=== PATIENT | female | born 1945 | race Caucasian/White ===

== ENCOUNTER 2016-04-23 11:28 | Emergency (ER) | payer MEDICARE, BC ==
[~2016-04-23 11:28] MED LIST: ANAS1TAB OR; ATOR10 PO; AUGM500T7 PO; CALC600T10 PO; GLUCTAB PO; RAMI10CA35 PO; TRIA50 PO; VICT18IN
[2016-04-23 11:37] VITALS: BP 86/64; PULSE 103; RESP 20; TEMP 98.4; O2SAT 89
[2016-04-23] MEDS ORDERED: FURO20TA PO (11:43)
[2016-04-23] MEDS ORDERED: PRAV10TA PO (11:43)
[2016-04-23] MEDS ORDERED: SPIR25TA PO (11:43)
[2016-04-23] MEDS ORDERED: RAMI5CAP PO (11:43)
[2016-04-23] MEDS ORDERED: METF1000 PO (11:43)
[2016-04-23] MEDS ORDERED: SODIUM CHLORIDE 0.9% FLUSH 5 ML FLUSH IVF PRN (11:45)
[2016-04-23 11:59] VITALS: O2SAT 90
[2016-04-23 12:05] LABS: BASOPHIL % 0.7 % (0.0-2.0); LYMPH % 16.8 % (9.0-44.0); LYMPHOCYTE # 1.1 TH/MM3 (1.0-4.8); MEAN CELL VOLUME 68.7 FL (80.0-100.0); MEAN CORPUSCULAR HEMOGLOBIN 21.1 PG (27.0-34.0); MEAN CORPUSCULAR HGB CONC 30.7 % (32.0-36.0); MONO % 9.6 % (0.0-8.0); NEUT % 72.9 % (16.0-70.0); PLATELET COUNT 257 TH/MM3 (150-450); RED BLOOD COUNT 5.67 MIL/MM3 (4.00-5.30); RED CELL DISTRIBUTION WIDTH 17.5 % (11.6-17.2); WHITE BLOOD COUNT 6.8 TH/MM3 (4.0-11.0)
[2016-04-23 12:07] LABS: HEMO FLAGS AUTO DIFF
--- NOTE | 2016-04-23 12:08 | PD ---
HPI Chief Complaint: Cold / Flu Symptoms Time Seen by Provider: 11:42 Travel History International Travel<30 days: No Contact w/Intl Traveler<30days: No Traveled to known affect area: No History of Present Illness HPI Is a 70 year-old woman who presents to the emergency department complaining of some cough and fatigue and ongoing for the past week or so. Cough is productive of small amount of sputum. Fatigue is been fairly prominent. She denies any fevers or chills. No chest pain. She recently had trouble with to much volume. She is a history of an enlarged heart and is on both spironolactone and Lasix daily. He had a metallic zone with good effect and she just recently changed to taking it every other day instead. She had some lower extremity swelling without improvement during that time as well. She is a history of active tobacco use although she hasn't smoked for the past week or so since she's been feeling sick. She saw her primary doctor today and was sent to the emergency department to evaluate for pneumonia. History Past Medical History Narrative Medical COPD Diabetes Hypertension History of breast cancer Enlarged heart/CHF Menopausal: Yes Social History Alcohol Use: Yes (SELDOM) Tobacco Use: Yes ("A COUPLE OF PPD") Allergies-Medications (Allergen,Severity, Reaction): Coded Allergies: No Known Allergies (Verified , 04/23/16) Reported Meds & Prescriptions Reported Meds & Active Scripts Active Reported Spironolactone 25 Mg Tab Unknown Dose PO DAILY Furosemide 20 Mg Tab Unknown Dose PO DAILY Pravastatin 10 Mg Tab Unknown Dose PO DAILY Ramipril 5 Mg Cap 5 Mg PO DAILY Metformin (Metformin HCl) 1,000 Mg Tab 1,000 Mg PO BIDPC With meals Review of Systems Except as stated in HPI: all other systems reviewed are Neg Physical Exam Narrative GENERAL: Generally well-appearing 70 year-old woman, no acute distress. SKIN: Warm and dry. HEAD: Atraumatic. Normocephalic. EYES: Pupils equal and round. No scleral icterus. No injection or drainage. ENT: No nasal bleeding or discharge. Mucous membranes pink and moist. NECK: Trachea midline. No JVD. CARDIOVASCULAR: Heart rate a little bit rapid, but regular. She has a thick split S2. No appreciable murmurs. RESPIRATORY: No accessory muscle use. Clear to auscultation. Breath sounds equal bilaterally. GASTROINTESTINAL: Abdomen soft, non-tender, nondistended. Hepatic and splenic margins not palpable. MUSCULOSKELETAL: No obvious deformities. No edema. NEUROLOGICAL: Awake and alert. No obvious cranial nerve deficits. Motor grossly within normal limits. Normal speech. Data Data Last Documented VS Vital Signs Date Time Temp Pulse Resp B/P Pulse Ox O2 Delivery O2 Flow Rate FiO2 04/23/16 13:32 76 20 88/64 96 04/23/16 12:22 98.4 Nasal Cannula 2 Orders Complete Blood Count With Diff (04/23/16 11:43) Comprehensive Metabolic Panel (04/23/16 11:43) B-Type Natriuretic Peptide (04/23/16 11:43) Magnesium (Mg) (04/23/16 11:43) Troponin I (04/23/16 11:43) Urinalysis - C+S If Indicated (04/23/16 11:43) Influenzae A/B Antigen (04/23/16 11:43) Blood Culture (04/23/16 11:43) Iv Access Insert/Monitor (04/23/16 11:43) Electrocardiogram (04/23/16 11:43) Ecg Monitoring (04/23/16 11:43) Oximetry (04/23/16 11:43) Oxygen Administration (04/23/16 11:43) Chest, Pa & Lat (04/23/16 11:43) Sodium Chloride 0.9% Flush (Ns Flush) (04/23/16 11:45) Labs Laboratory Tests Test 04/23/16 04/23/16 11:40 11:45 White Blood Count 6.8 TH/MM3 Red Blood Count 5.67 MIL/MM3 Hemoglobin 12.0 GM/DL Hematocrit 39.0 % Mean Corpuscular Volume 68.7 FL Mean Corpuscular Hemoglobin 21.1 PG Mean Corpuscular Hemoglobin 30.7 % Concent Red Cell Distribution Width 17.5 % Platelet Count 257 TH/MM3 Mean Platelet Volume 8.3 FL Neutrophils (%) (Auto) 72.9 % Lymphocytes (%) (Auto) 16.8 % Monocytes (%) (Auto) 9.6 % Eosinophils (%) (Auto) 0.0 % Basophils (%) (Auto) 0.7 % Neutrophils # (Auto) 5.0 TH/MM3 Lymphocytes # (Auto) 1.1 TH/MM3 Monocytes # (Auto) 0.7 TH/MM3 Eosinophils # (Auto) 0.0 TH/MM3 Basophils # (Auto) 0.0 TH/MM3 CBC Comment AUTO DIFF Differential Comment AUTO DIFF CONFIRMED Platelet Estimate NORMAL Platelet Morphology Comment NORMAL Sodium Level 124 MEQ/L Potassium Level 3.9 MEQ/L Chloride Level 83 MEQ/L Carbon Dioxide Level 30.4 MEQ/L Anion Gap 11 MEQ/L Blood Urea Nitrogen 22 MG/DL Creatinine 1.20 MG/DL Estimat Glomerular Filtration 45 ML/MIN Rate Random Glucose 124 MG/DL Calcium Level 8.7 MG/DL Magnesium Level 1.5 MG/DL Total Bilirubin 0.8 MG/DL Aspartate Amino Transf 25 U/L (AST/SGOT) Alanine Aminotransferase 16 U/L (ALT/SGPT) Alkaline Phosphatase 91 U/L Troponin I 0.02 NG/ML B-Type Natriuretic Peptide 1413 PG/ML Total Protein 7.2 GM/DL Albumin 3.6 GM/DL Urine Collection Type CLEAN CATCH Urine Color YELLOW Urine Turbidity CLEAR Urine pH 6.0 Urine Specific [place] 1.009 Urine Protein NEG mg/dL Urine Glucose (UA) NEG mg/dL Urine Ketones NEG mg/dL Urine Occult Blood NEG Urine Nitrite NEG Urine Bilirubin NEG Urine Leukocyte Esterase NEG Urine Squamous Epithelial 0-5 /hpf Cells Microscopic Urinalysis Comment CULT NOT INDICATED MDM Medical Decision Making Medical Screen Exam Complete: Yes Emergency Medical Condition: Yes Interpretation(s) My review of EKG: Sinus rhythm at a rate of 90. EKG is very abnormal with widespread ST changes, inferior T-wave inversions, lateral T wave inversions, right axis deviation, incomplete right bundle branch block, likely all from her cardiomyopathy. He only old when I have for comparison is from September 2012. All the findings are much more pronounced on today's EKG especially lateral ST changes and T-wave inversions. LABS: CBC remarkable for mild anemia. CMP remarkable for sodium 124, BUN/creatinine 22/1.2 Troponin 0.02 BNP 1413 UA Chest x-ray: Cardiomegaly. Clear lungs. Differential Diagnosis URI, pneumonia, pulmonary edema, ACS, renal failure, other Narrative Course Medical decision making INITIAL: 62-year-old woman with fairly pronounced sounds like cardiomyopathy and CHF who presents with cough and fatigue. She is overall well-appearing. Oxygen saturations were in the low 90s high 80s. EKG is very abnormal with widespread ST changes, inferior T-wave inversions, lateral T wave inversions, right axis deviation, incomplete right bundle branch block, likely all from her cardiomyopathy. He only old when I have for comparison is from September 2012. All the findings are much more pronounced on today's EKG especially lateral ST changes and T-wave inversions. We'll check labs, x-ray, reassess. FINAL: Patient presently well-appearing. Sodium is pretty low. I spoke with her sourcing specialist, Dr. Mata. It labs yesterday were is 121. She runs between 28/02/27. He states he has severe right sided heart failure may be able to manage with diuretics. He will follow up with her. She desires to be discharged. We'll give her medication for the cough. Diagnosis Primary Impression: Bronchitis Additional Instructions: Continue current medications including taking metalozone every other day. Follow-up with Dr. Cortés as planned. Take azithromycin as prescribed. Med/Other Pt SpecificInfo: Prescription(s) given Scripts Azithromycin (Zithromax Z-Jaime)250 Mg [id number] Mg PO DIRECTED #1 DSPK 500 MG (2 tabs) day 1, then 1 tab days 2-5. Prov:Kevin Fonseca MD 04/23/16 Disposition: 01 DISCHARGE HOME Condition: Stable Kevin Fonseca MD Apr 23, 2016 12:07
[2016-04-23 12:22] VITALS: BP 83/68; PULSE 92; RESP 20; TEMP 98.4; O2SAT 95
[2016-04-23 12:34] LABS: ALKALINE PHOSPHATASE 91 U/L (45-117); ALT (GPT) 16 U/L (10-53); ANION GAP 11 MEQ/L (5-15); AST (GOT) 25 U/L (15-37); BICARBONATE 30.4 MEQ/L (21.0-32.0); BLOOD UREA NITROGEN 22 MG/DL (7-18); CHLORIDE 83 MEQ/L (98-107); GLOMERULAR FILTRATION RATE 45 ML/MIN (>89); MAGNESIUM 1.5 MG/DL (1.5-2.5); PLATELET ESTIMATE SMEAR NORMAL (NORMAL); PLATELET MORPHOLOGY NORMAL (NORMAL); POTASSIUM 3.9 MEQ/L (3.5-5.1); SCAN/DIFF AUTO DIFF CONFIRMED; TOTAL BILIRUBIN ADULT 0.8 MG/DL (0.2-1.0)
[2016-04-23 12:35] LABS: SODIUM (NA) 124 MEQ/L (136-145)
--- NOTE | 2016-04-23 12:40 | RADHPO ---
EXAM DATE/TIME: 04/23/2016 12:14 [facility] COMPARISON: No previous studies available for comparison. INDICATIONS : Cough and short of breath. MEDICAL HISTORY : None. SURGICAL HISTORY : None. ENCOUNTER: Initial ACUITY: 3 days PAIN SCORE: 2/10 LOCATION: Bilateral chest FINDINGS: PA and lateral views of the chest demonstrate the lungs to be symmetrically aerated without evidence of mass, infiltrate or effusion. Mild cardiomegaly. Pulmonary vasculature is within the normal range. Osseous structures are intact. CONCLUSION: Cardiomegaly. Clear lungs. Jim Griffiths Jr., MD on April 23, 2016 at 12:38 Board Certified Radiologist. This report was verified electronically.
[2016-04-23 12:59] LABS: BLOOD, URINE NEG (NEG); GLUCOSE,URINE NEG (NEG); KETONE, URINE NEG (NEG); METHOD OF COLLECTION CLEAN CATCH; NITRITE,URINE NEG (NEG)
[2016-04-23 13:00] LABS: URINE COLOR YELLOW (YELLW/STRAW)
[2016-04-23 13:03] LABS: COMMENT (UR) CULT NOT INDICATED; CULTURE IF INDICATED CULT NOT INDICATED; SQUAMOUS EPITHELIAL CELL URINE 0-5 /hpf (0-5)
[2016-04-23 13:32] VITALS: BP 88/64; PULSE 76; RESP 20; O2SAT 96
[2016-04-23] MEDS ORDERED: ZITHTAB PO (13:35)
--- NOTE | 2016-04-24 15:18 | EKG ---
Date Performed: 04/23/2016 Time Performed: 11:35:10 PTAGE: 70 years EKG: Sinus rhythm with PAC(s) Possible left atrial abnormality Right axis deviation Incomplete RBBB Biventricular hype rtrophy Extensive ST-T changes may be due to hypertrophy and/or ischemia Abnormal ECG PREVIOUS TRACING : 10/08/2012 14.18 Compared to previous tracing, the patient does have more ma rked Q-wave inversion and ST depression which may be secondary to LVH. Clinical correlation requested to evaluate for ischemia. DOCTOR: Jemima Rodríguez Interpretating Date/Time 04/24/2016 15:17:16
== END 2016-04-23 13:56 | disposition home or self-care (01) ==
LOC: PHED 11:28
DX: J40 Bronchitis, not specified as acute or chronic (principal); J44.9 Chronic obstructive pulmonary disease, unspecified; F17.210 Nicotine dependence, cigarettes, uncomplicated; E11.9 Type 2 diabetes mellitus without complications; I10 Essential (primary) hypertension; Z79.4 Long term (current) use of insulin; R94.31 Abnormal electrocardiogram [ECG] [EKG]
CPT/HCPCS: 71020; 80053; 81001; 83735; 83880; 84484; 85025; 87040; 87804; 93005

== ENCOUNTER 2016-06-05 13:11 | Inpatient (IN) | payer MEDICARE, BC ==
[2016-06-05] VITALS (16 sets, daily range): BP systolic 75–107; BP diastolic 52–68; PULSE 80–106; RESP 16–24; TEMP 97.9–98.2; O2SAT 87–98
[~2016-06-05] VITALS: Ht 152.4 cm; Wt 60.2 kg
[~2016-06-05 13:11] MED LIST changes: -ANAS1TAB OR; -ATOR10 PO; -AUGM500T7 PO; -CALC600T10 PO; +FURO20TA PO; -GLUCTAB PO; +METF1000 PO; +PRAV10TA PO; -RAMI10CA35 PO; +RAMI5CAP PO; +SPIR25TA PO; -TRIA50 PO; -VICT18IN; +ZITHTAB PO
[2016-06-05] MEDS ORDERED: SODIUM CHLORIDE 0.9% FLUSH 10 ML FLUSH IVF PRN (13:45)
[2016-06-05] MEDS ORDERED: SODIUM CHLOR 0.9% 250 ML INJ 250 ML IV ONE (13:45)
[2016-06-05 14:03] LABS: AUTOMATED NEUTROPHIL # 6.3 TH/MM3 (1.8-7.7); BASOPHIL # 0.2 TH/MM3 (0-0.2); EOSINOPHIL % 0.4 % (0.0-4.0); HEMATOCRIT 35.4 % (35.0-46.0); LYMPH % 12.8 % (9.0-44.0); MEAN CELL VOLUME 66.8 FL (80.0-100.0); MEAN CORPUSCULAR HEMOGLOBIN 20.6 PG (27.0-34.0); MEAN CORPUSCULAR HGB CONC 30.8 % (32.0-36.0); MONO % 9.1 % (0.0-8.0); NEUT % 75.7 % (16.0-70.0); PLATELET COUNT 307 TH/MM3 (150-450); RED BLOOD COUNT 5.29 MIL/MM3 (4.00-5.30); RED CELL DISTRIBUTION WIDTH 20.6 % (11.6-17.2); WHITE BLOOD COUNT 8.2 TH/MM3 (4.0-11.0)
[2016-06-05 14:06] LABS: HEMO FLAGS AUTO DIFF
[2016-06-05 14:09] LABS: CHLORIDE 88 MEQ/L (98-107); POTASSIUM 3.8 MEQ/L (3.5-5.1); SODIUM (NA) 126 MEQ/L (136-145)
[2016-06-05 14:13] LABS: ANION GAP 12 MEQ/L (5-15); BICARBONATE 26.4 MEQ/L (21.0-32.0); BLOOD UREA NITROGEN 21 MG/DL (7-18)
[2016-06-05 14:15] LABS: APTT (PATIENT) 25.7 SEC (24.3-30.1); PROTHROMBIN TIME - PATIENT 10.6 SEC (9.8-11.6)
[2016-06-05 14:16] LABS: ALT (GPT) 20 U/L (10-53); AST (GOT) 32 U/L (15-37); GLOMERULAR FILTRATION RATE 55 ML/MIN (>89)
[2016-06-05 14:18] LABS: TOTAL BILIRUBIN ADULT 0.6 MG/DL (0.2-1.0)
[2016-06-05 14:19] LABS: ALKALINE PHOSPHATASE 65 U/L (45-117)
[2016-06-05 14:39] LABS: SCAN/DIFF AUTO DIFF CONFIRMED
[2016-06-05] MEDS ORDERED: ASPIRIN 81 MG CHEW TAB CHEW ONE (14:45)
--- NOTE | 2016-06-05 15:19 | RADHPO ---
EXAM DATE/TIME: 06/05/2016 13:55 [facility] COMPARISON: CHEST PA & LAT, April 23, 2016, 12:14. INDICATIONS : Cough, short of breath, low blood pressure. MEDICAL HISTORY : Hypercholesterolemia. Carcinoma, breast. Chronic obstructive pulmonary disease. Hypertension. CAD . Radiation therapy. Diabetic. SURGICAL HISTORY : Tonsillectomy. Mastectomy, bilateral. ENCOUNTER: Initial ACUITY: 3 days PAIN SCORE: 0/10 LOCATION: chest FINDINGS: PA and lateral views of the chest demonstrate the lungs to be symmetrically aerated without evidence of mass, infiltrate or effusion. There atherosclerotic calcifications in the aorta. The heart size is mildly prominent. The osseous structures are intact. CONCLUSION: No acute disease. There is no evidence of pneumonia. Venkat Sampson MD on June 05, 2016 at 15:16 Board Certified Radiologist. This report was verified electronically.
--- NOTE | 2016-06-05 15:34 | PD ---
HPI Chief Complaint: General Weakness Time Seen by Provider: 13:35 Travel History International Travel<30 days: No Contact w/Intl Traveler<30days: No Traveled to known affect area: No History of Present Illness HPI Patient is a 70-year-old female with history of CHF and hyponatremia, who comes in because she was told her sodium was low. She says she has been feeling dizzy lately and palpitations. She denies any chest pain or shortness of breath. She says she has issues with low sodium and gets it checked at least once a week. She says she has had a cough, but was recently treated for bronchitis. She denies any fever or chills. PFSH Past Medical History High Cholesterol: Yes Congestive Heart Failure: Yes COPD: Yes Coronary Artery Disease: Yes Diabetes: Yes Patient Takes Glucophage: Yes Hypertension: Yes Medical other: Yes (enlarged heart, fluid around heart) Tetanus Vaccination: > 5 Years Influenza Vaccination: Yes Menopausal: Yes Past Surgical History Gynecologic Surgery: Yes (BILAT LUMPECTOMY/RT CA>RADIATION) Mastectomy: Yes (BILATERAL) Tonsillectomy: Yes Social History Alcohol Use: Yes (SELDOM) Tobacco Use: Yes (1ppd) Substance Use: No Allergies-Medications (Allergen,Severity, Reaction): Coded Allergies: No Known Allergies (Verified , 06/05/16) Reported Meds & Prescriptions Reported Meds & Active Scripts Active Zithromax Z-Jaime (Azithromycin) 250 Mg Dspk 250 Mg PO DIRECTED 500 MG (2 tabs) day 1, then 1 tab days 2-5. Reported Klor-Con 8 (Potassium Chloride) 8 Meq Tab 8 Meq PO DAILY Hydroxyzine HCl 10 Mg Tab 10 Mg PO TID PRN Atorvastatin (Atorvastatin Calcium) 10 Mg Tab 10 Mg PO HS Metolazone 2.5 Mg Tab 2.5 Mg PO DAILY PRN [water pill, unknown ] Spironolactone 25 Mg Tab 1 PO BID Furosemide 20 Mg Tab 1 PO BID Ramipril 5 Mg Cap 5 Mg PO DAILY Metformin (Metformin HCl) 1,000 Mg Tab 1,000 Mg PO BIDPC With meals Review of Systems Except as stated in HPI: all other systems reviewed are Neg General / Constitutional: No: Fever, Chills HENT: Positive: Lightheadedness, No: Headaches Cardiovascular: Positive: Palpitations Respiratory: Positive: Cough, No: Shortness of Breath Gastrointestinal: No: Nausea, Vomiting Musculoskeletal: No: Pain Skin: No Change in Pigmentation Neurologic: Positive: Dizziness Physical Exam Narrative GENERAL: Awake and alert, in no acute distress. SKIN: Focused skin assessment warm/dry. HEAD: Atraumatic. Normocephalic. EYES: Pupils equal and round. No scleral icterus. ENT: Mucous membranes pink and moist. NECK: Trachea midline. No JVD. CARDIOVASCULAR: Regular rate and rhythm. No murmur appreciated. RESPIRATORY: No accessory muscle use. Crackles at the left lung base. Breath sounds equal bilaterally. GASTROINTESTINAL: Abdomen soft, non-tender, nondistended. MUSCULOSKELETAL: No obvious deformities. No clubbing. No cyanosis. No edema. NEUROLOGICAL: Awake and alert. No obvious cranial nerve deficits. Motor grossly within normal limits. Normal speech. PSYCHIATRIC: Appropriate mood and affect; insight and judgment normal. Data Data Last Documented VS Vital Signs Date Time Temp Pulse Resp B/P Pulse Ox O2 Delivery O2 Flow Rate FiO2 06/05/16 15:52 Room Air 06/05/16 15:51 91 18 95/67 96 06/05/16 15:00 98.2 Orders Complete Blood Count With Diff (06/05/16 13:44) Comprehensive Metabolic Panel (06/05/16 13:44) B-Type Natriuretic Peptide (06/05/16 13:44) Act Partial Throm Time (Ptt) (06/05/16 13:44) Prothrombin Time / Inr (Pt) (06/05/16 13:44) Troponin I (06/05/16 13:44) Urinalysis - C+S If Indicated (06/05/16 13:44) Ua Includes Microscopic (06/05/16 13:44) Iv Access Insert/Monitor (06/05/16 13:44) Electrocardiogram (06/05/16 13:44) Ecg Monitoring (06/05/16 13:44) Oximetry (06/05/16 13:44) Chest, Pa & Lat (06/05/16 13:44) Sodium Chloride 0.9% Flush (Ns Flush) (06/05/16 13:45) Sodium Chlor 0.9% 250 Ml Inj (Ns 250 Ml (06/05/16 13:45) Aspirin Chew (Aspirin Chew) (06/05/16 14:45) Heparin Inj (Heparin Inj) (06/05/16 16:00) Heparin Inj (Heparin Inj) (06/05/16 22:00) Heparin Inj (Heparin Inj) (06/05/16 22:00) Heparin-D5w Inj (Heparin-D5w Inj) (06/05/16 16:00) Admit Order (Ed Use Only) (06/05/16 ) Labs Laboratory Tests Test 06/05/16 13:52 White Blood Count 8.2 TH/MM3 Red Blood Count 5.29 MIL/MM3 Hemoglobin 10.9 GM/DL Hematocrit 35.4 % Mean Corpuscular Volume 66.8 FL Mean Corpuscular Hemoglobin 20.6 PG Mean Corpuscular Hemoglobin 30.8 % Concent Red Cell Distribution Width 20.6 % Platelet Count 307 TH/MM3 Mean Platelet Volume 7.4 FL Neutrophils (%) (Auto) 75.7 % Lymphocytes (%) (Auto) 12.8 % Monocytes (%) (Auto) 9.1 % Eosinophils (%) (Auto) 0.4 % Basophils (%) (Auto) 2.0 % Neutrophils # (Auto) 6.3 TH/MM3 Lymphocytes # (Auto) 1.0 TH/MM3 Monocytes # (Auto) 0.7 TH/MM3 Eosinophils # (Auto) 0.0 TH/MM3 Basophils # (Auto) 0.2 TH/MM3 CBC Comment AUTO DIFF Differential Comment AUTO DIFF CONFIRMED Prothrombin Time 10.6 SEC Prothromb Time International 1.0 RATIO Ratio Activated Partial 25.7 SEC Thromboplast Time Sodium Level 126 MEQ/L Potassium Level 3.8 MEQ/L Chloride Level 88 MEQ/L Carbon Dioxide Level 26.4 MEQ/L Anion Gap 12 MEQ/L Blood Urea Nitrogen 21 MG/DL Creatinine 1.00 MG/DL Estimat Glomerular Filtration 55 ML/MIN Rate Random Glucose 136 MG/DL Calcium Level 8.6 MG/DL Total Bilirubin 0.6 MG/DL Aspartate Amino Transf 32 U/L (AST/SGOT) Alanine Aminotransferase 20 U/L (ALT/SGPT) Alkaline Phosphatase 65 U/L Troponin I 0.69 NG/ML B-Type Natriuretic Peptide 1588 PG/ML Total Protein 6.5 GM/DL Albumin 3.4 GM/DL MDM Medical Decision Making Medical Screen Exam Complete: Yes Emergency Medical Condition: Yes Medical Record Reviewed: Yes Interpretation(s) ECG shows sinus rhythm at 84, there is extensive T-wave changes that are consistent with her previous EKG in April. Differential Diagnosis STEMI vs NSTEMI vs ACS vs electrolyte abnormalities Narrative Course Patient is a 70 year old female who comes in because she was told her sodium was low. She says she has had dizziness and palpitations. Exam shows no acute abnormalities. IV established, labs sent, connected to the monitor worker. ECG shows signs of ischemia, similar to previous. Labs show a sodium of 126, it was 124 in April when she was discharged. Troponin is elevated to 0.69, was 0.02 in April 2016. Patient given Aspirin, started on Heparin for NSTEMI. Calls placed to Dr. Cortés of cardiology. Admitted for further management. Diagnosis Primary Impression: NSTEMI (non-ST elevated myocardial infarction) Additional Impression: Hyponatremia Admitting Information Admitting Physician Requests: Admit Condition: Stable Shala Cortes MD Jun 05, 2016 15:34
[2016-06-05] MEDS ORDERED: HEPARIN-D5W INJ 250 ML IV SCH (16:00)
[2016-06-05] MEDS ORDERED: HEPARIN SODIUM - IV 10,000 UNITS/10 ML VIAL IV ONE (16:00)
[2016-06-05] MEDS ORDERED: [UNRECOGNIZED DRUG - REMARK] (16:36)
--- NOTE | 2016-06-05 17:27 | HHI.HP ---
[facility] Service [facility] Primary Care Physician Srinivasan Clark MD Admission Diagnosis NSTEMI Diagnoses: Chief Complaint: Low sodium Travel History International Travel<30 Days: No Contact w/Intl Traveler <30 Da: No Traveled to Known Affected Are: No History of Present Illness The patient is a 70-year-old female with past medical history of CHF who is presenting to the hospital after being called by her primary care doctor who stated that her sodium level was too low. The patient says that she had labs drawn because she has an appointment with her primary care doctor next week. The patient says that she was recently treated for bronchitis. She says she still feels congested. She has occasional palpitations. She states her palpitations get worse if she bends over. She has some mild shortness of breath but it does not seem to restrict her activities. She says recently she put on 15 or 16 pounds. She says her core sticker adjusted her diuretics and she has lost all but 3 or 4 of those pounds. She does say she drinks a lot of water. She has a hard time restricting salt. She says that because she has a low-sodium she has heard different things about how much salt she should restrict from her diet. She denies any chest pain. She denies any lower extremity edema except for around her thighs sometimes. She does notice swelling around her eyes. Review of Systems Except as stated in HPI: all other systems reviewed are Neg Past Family Social History Past Medical History CHF Diabetes Hyperlipidemia Breast cancer status post lumpectomy Psoriasis/ lichen planus Allergies: Coded Allergies: No Known Allergies (Verified , 06/05/16) Active Ordered Medications Current Medications Medications (Trade) Dose Ordered Sig/Luna Route Start Time Stop Time Status Last Admin (NS Flush) 2 ml UNSCH PRN IVF 06/05/16 13:45 06/05/16 15:02 (Heparin Inj) 5,000 units UNSCH PRN IV 06/05/16 22:00 Heparin Sodium (Porcine) 2500 units 2,500 units UNSCH PRN IV 06/05/16 22:00 (Heparin-D5W Inj) 250 ml @ 0 mls/hr TITRATE IV 06/05/16 16:00 06/05/16 16:16 Family History The patient denies pertinent family history. Social History The patient smokes 1-1/2 packs per day. She has rare alcohol use. Physical Exam Vital Signs Vital Signs Date Time Temp Pulse Resp B/P Pulse Ox O2 Delivery O2 Flow Rate FiO2 06/05/16 16:50 88 20 94/64 95 Room Air 06/05/16 15:52 Room Air 06/05/16 15:51 91 18 95/67 96 Room Air 06/05/16 15:21 92 19 75/55 95 Room Air 06/05/16 15:02 95 18 85/59 96 Room Air 06/05/16 15:00 98.2 85 18 83/61 96 Room Air 06/05/16 14:50 96 18 84/57 96 Room Air 06/05/16 14:00 86 16 86/57 94 Room Air 06/05/16 13:40 87 19 81/57 95 Room Air 06/05/16 13:35 97 Room Air 06/05/16 13:35 Room Air 06/05/16 13:30 96 19 89/52 95 Room Air 06/05/16 13:25 92 18 90/53 96 06/05/16 13:23 97.9 106 16 82/61 97 Physical Exam GENERAL: Awake and alert, in no acute distress. SKIN: Multiple erythematous lesions on arms and legs, as well as abdominal area. HEAD: Atraumatic. Normocephalic. EYES: Pupils equal and round. No scleral icterus. ENT: Mucous membranes pink and moist. NECK: Trachea midline. No JVD. CARDIOVASCULAR: Regular rate and rhythm. No murmur appreciated. RESPIRATORY: No accessory muscle use. Crackles at the bilateral lung bases. Breath sounds equal bilaterally. GASTROINTESTINAL: Abdomen soft, non-tender, nondistended. MUSCULOSKELETAL: No obvious deformities. No clubbing. No cyanosis. No edema. NEUROLOGICAL: Awake and alert. No obvious cranial nerve deficits. Motor grossly within normal limits. Normal speech. PSYCHIATRIC: Appropriate mood and affect; insight and judgment normal. Laboratory Laboratory Tests Test 06/05/16 13:52 White Blood Count 8.2 Red Blood Count 5.29 Hemoglobin 10.9 Hematocrit 35.4 Mean Corpuscular Volume 66.8 Mean Corpuscular Hemoglobin 20.6 Mean Corpuscular Hemoglobin 30.8 Concent Red Cell Distribution Width 20.6 Platelet Count 307 Mean Platelet Volume 7.4 Neutrophils (%) (Auto) 75.7 Lymphocytes (%) (Auto) 12.8 Monocytes (%) (Auto) 9.1 Eosinophils (%) (Auto) 0.4 Basophils (%) (Auto) 2.0 Neutrophils # (Auto) 6.3 Lymphocytes # (Auto) 1.0 Monocytes # (Auto) 0.7 Eosinophils # (Auto) 0.0 Basophils # (Auto) 0.2 CBC Comment AUTO DIFF Differential Comment AUTO DIFF CONFIRMED Prothrombin Time 10.6 Prothromb Time International 1.0 Ratio Activated Partial 25.7 Thromboplast Time Sodium Level 126 Potassium Level 3.8 Chloride Level 88 Carbon Dioxide Level 26.4 Anion Gap 12 Blood Urea Nitrogen 21 Creatinine 1.00 Estimat Glomerular Filtration 55 Rate Random Glucose 136 Calcium Level 8.6 Total Bilirubin 0.6 Aspartate Amino Transf 32 (AST/SGOT) Alanine Aminotransferase 20 (ALT/SGPT) Alkaline Phosphatase 65 Troponin I 0.69 B-Type Natriuretic Peptide 1588 Total Protein 6.5 Albumin 3.4 Result Diagram: 06/05/16 1352 06/05/16 1352 Imaging Last Impressions Chest X-Ray 06/05/16 1344 Signed Impressions: Service Date/Time: Sunday, June 05, 2016 13:55 - CONCLUSION: No acute disease. There is no evidence of pneumonia. Venkat Sampson MD Assessment and Plan Assessment and Plan NSTEMI The patient has a history of CHF. She has had symptoms of palpitations but not out right chest pain. She has had congestion and states she was recently treated for bronchitis. She has mild shortness of breath associated with this. EKG with pronounced ST depressions in the lateral leads, which is similar to the previous study. Initial troponin was 0.69. BNP was elevated at 1588. The patient was started on a heparin drip. - The patient's core sticker has been consulted (Dr. Cortés). - Continue heparin drip. - Diuresis with Lasix 20 mg IV twice a day. - Continue cardiac regimen. - Check a lipid profile. - Trend troponins and EKGs. - Monitor on telemetry. - 1.5 L fluid restriction. - Dietary consult requested. Hyponatremia The patient has chronic hyponatremia. Her diuretics seem to contribute. - Continue with diuresis and fluid restriction. - Monitor BMP. Probable COPD/ Nicotine dependence The patient still smokes 1.5 packs daily. - Cessation instruction. - PFTs as an outpatient. - Oxygen as needed. Hypotension Appears chronic. Relatively asymptomatic. - monitor while being diuresed. - follow up with cardiology. Anemia Hemoglobin seems lower than baseline. MCV is low. Possible iron deficiency anemia. - Check iron studies, B12 and folate levels. - Check Hemoccult. Diabetes On metformin as an outpt. - hold metformin. - insulin sliding scale. PPx: Heparin drip. Code Status Full. Discussed Condition With Pt, pt's family, Dr. Cortes. Physician Certification 2 Midnight Certification Type: Admission for Inpatient Services Order for Inpatient Services The services are ordered in accordance with Medicare regulations or non- Medicare payer requirements, as applicable. In the case of services not specified as inpatient-only, they are appropriately provided as inpatient services in accordance with the 2-midnight benchmark. Estimated LOS (days): 2 days is the estimated time the patient will need to remain in the hospital, assuming treatment plan goals are met and no additional complications. Post-Hospital Plan: Not yet determined Venkat Rios DO Jun 05, 2016 17:27
[2016-06-05] MEDS ORDERED: SODIUM CHLORIDE 0.9% FLUSH 10 ML FLUSH IV FLUSH PRN (17:30)
[2016-06-05] MEDS ORDERED: NALOXONE HCL 0.4 MG/ML AMP IV PRN (17:30)
[2016-06-05] MEDS ORDERED: SENNOSIDES 8.6 MG TAB PO PRN (17:30)
[2016-06-05] MEDS ORDERED: ACETAMINOPHEN 325 MG TAB PO PRN ×2 (17:30)
[2016-06-05] MEDS: FUROSEMIDE 20 MG/2 ML VIAL IV PUSH SCH (18:08)
[2016-06-05 18:49] LABS: BLOOD, URINE NEG (NEG); GLUCOSE,URINE NEG (NEG); KETONE, URINE NEG (NEG); NITRITE,URINE NEG (NEG); PH, URINE 5.5 (5.0-8.5)
[2016-06-05 18:58] LABS: HYALINE CAST, URINE 0-2 /lpf (RARE); METHOD OF COLLECTION VOIDED; URINE COLOR YELLOW (YELLW/STRAW)
[2016-06-05 18:59] LABS: BACTERIA, URINE FEW /hpf; COMMENT (UR) CULT NOT INDICATED; CULTURE IF INDICATED CULT NOT INDICATED; SQUAMOUS EPITHELIAL CELL URINE 0-5 /hpf (0-5); WBC, URINE 0-2 /hpf (0-5)
[2016-06-05] MEDS ORDERED: KLOR8TAB PO (19:44)
[2016-06-05] MEDS ORDERED: HYDR-755 PO (19:44)
[2016-06-05] MEDS ORDERED: METO2.5T PO (19:44)
[2016-06-05] MEDS ORDERED: ATOR10TA15 PO (19:44)
[2016-06-05] MEDS ORDERED: TRIA37.53 PO (19:44)
[2016-06-05 20:29] LABS: MAGNESIUM 1.6 MG/DL (1.5-2.5)
[2016-06-05] MEDS: INSULIN ASPART SUPPLEMENTAL SCALE SQ SCH (21:00)
[2016-06-05] MEDS: SODIUM CHLORIDE 0.9% FLUSH 10 ML FLUSH IV FLUSH SCH (21:26)
[2016-06-05] MEDS: DOCUSATE SODIUM 100 MG CAP PO SCH (21:27)
[2016-06-05] MEDS ORDERED: HEPARIN SODIUM - IV 10,000 UNITS/10 ML VIAL IV PRN ×2 (22:00)
--- NOTE | 2016-06-05 23:37 | MB ---
cc: KELY HARKINS MD DATE OF CONSULTATION 06/05/16 HISTORY OF PRESENT ILLNESS Ms. Lopez is a 70 year old white female with a history of cor pulmonale, pulmonary hypertension and smoking. Her recent labs showed hyponatremia and she was sent to the hospital by Dr. Clark. She has not had any chest pain. She has occasional palpitation. Her shortness of breath has been actually stable. She has not gained any weight. She is on a low sodium diet. She continues to smoke. PAST MEDICAL HISTORY 1. Right-sided congestive heart failure 2. Diabetes mellitus 3. Dyslipidemia 4. Breast cancer status post lumpectomy 5. Lichen planus 6. PET nuclear myocardial perfusion study in 05/2015 was negative for ischemia. 7. History of cor pulmonale and severe pulmonary hypertension. MEDICATIONS At home, 1. Furosemide 2. Spironolactone 3. Metolazone 4. Metformin 5. Atorvastatin 6. Ramipril 7. Calcium and vitamin D. ALLERGIES None. SOCIAL HISTORY The patient continues to smoke. She does not drink alcohol. FAMILY HISTORY Positive for heart disease in her sibling. REVIEW OF SYSTEMS Otherwise negative. PHYSICAL EXAMINATION VITAL SIGNS: Blood pressure 94/54, pulse 86 and regular. HEENT: Negative, 2+ carotid upstrokes, no bruits. LUNGS: Few bilateral crackles HEART: Regular with 1/6 systolic murmur at the left sternal border. ABDOMEN: Soft, no bruits. EXTREMITIES: Trace edema, 1-2+ distal pulses. NEUROLOGIC: Grossly nonfocal. CARDIOLOGY STUDIES Electrocardiogram was reviewed and showed arrhythmia, right axis, right ventricular hypertrophy with diffuse ST-T changes consistent with RVH. This EKG is unchanged from the previous EKG in our office. LABORATORY DATA Hemoglobin 10.9, potassium 3.8, creatinine 1.0, AST 32, ALT 20, troponin 0.69, BNP 1588 DIAGNOSES 1. Cor pulmonale. Severe right ventricle enlargement and dysfunction 2. Mildly abnormal troponin. 3. Negative PET nuclear myocardial perfusion study in 05/2015 4. Severe pulmonary hypertension 5. Hyponatremia 6. Severe chronic obstructive pulmonary disease 7. Smoking. 8. Anemia 9. Diabetes mellitus DISPOSITION Ms. Lopez will continue her current medical program including diuresis. We will start a baby aspirin but we will discontinue heparin at this time. She will be monitored on telemetry. I will see her back for followup in our office after discharge. No further inpatient cardiac evaluation is planned at this time. MD BRENDA Zhao/ /8:22 PM /11:25 PM KRISTEN
[2016-06-06] VITALS: BP 134/74; PULSE 86; RESP 20; TEMP 97.8; O2SAT 97
[2016-06-06 00:25] LABS: TRANSFERRIN IRON PROFILE 326 MG/DL (200-360)
[2016-06-06 01:07] LABS: FERRITIN 9 NG/ML (8-252); HDL CHOLESTEROL 43.5 MG/DL (40.0-60.0); LDL CHOLESTEROL 40 MG/DL (0-99)
[2016-06-06 04:00] VITALS: PULSE 70
[2016-06-06 04:13] VITALS: BP 133/75; PULSE 80; RESP 24; TEMP 98; O2SAT 99
[2016-06-06 06:05] LABS: AUTOMATED NEUTROPHIL # 5.5 TH/MM3 (1.8-7.7); BASOPHIL # 0.1 TH/MM3 (0-0.2); BASOPHIL % 0.8 % (0.0-2.0); EOSINOPHIL % 0.4 % (0.0-4.0); HEMATOCRIT 37.2 % (35.0-46.0); LYMPH % 15.9 % (9.0-44.0); LYMPHOCYTE # 1.2 TH/MM3 (1.0-4.8); MEAN CELL VOLUME 66.3 FL (80.0-100.0); MEAN CORPUSCULAR HEMOGLOBIN 20.3 PG (27.0-34.0); MEAN CORPUSCULAR HGB CONC 30.6 % (32.0-36.0); MONO % 6.6 % (0.0-8.0); NEUT % 76.3 % (16.0-70.0); PLATELET COUNT 308 TH/MM3 (150-450); RED CELL DISTRIBUTION WIDTH 19.9 % (11.6-17.2); WHITE BLOOD COUNT 7.3 TH/MM3 (4.0-11.0)
[2016-06-06 06:09] LABS: HEMO FLAGS AUTO DIFF
[2016-06-06 06:15] LABS: CHLORIDE 88 MEQ/L (98-107); POTASSIUM 3.9 MEQ/L (3.5-5.1); SODIUM (NA) 129 MEQ/L (136-145)
[2016-06-06 06:17] LABS: ANION GAP 7 MEQ/L (5-15); BICARBONATE 34.5 MEQ/L (21.0-32.0)
[2016-06-06 06:18] LABS: BLOOD UREA NITROGEN 17 MG/DL (7-18)
[2016-06-06 06:19] LABS: OVALOCYTES 1+ (NORMAL); PLATELET ESTIMATE SMEAR NORMAL (NORMAL); PLATELET MORPHOLOGY NORMAL (NORMAL)
[2016-06-06 06:20] LABS: SCAN/DIFF AUTO DIFF CONFIRMED
[2016-06-06 06:21] LABS: ALT (GPT) 19 U/L (10-53); AST (GOT) 24 U/L (15-37); GLOMERULAR FILTRATION RATE 58 ML/MIN (>89)
[2016-06-06 06:22] LABS: TOTAL BILIRUBIN ADULT 0.7 MG/DL (0.2-1.0)
[2016-06-06 06:23] LABS: ALKALINE PHOSPHATASE 69 U/L (45-117)
[2016-06-06] MEDS: INSULIN ASPART SUPPLEMENTAL SCALE SQ SCH ×2 (06:36→13:20)
[2016-06-06 08:00] VITALS: BP 112/66; PULSE 75; PULSE 86; RESP 20; TEMP 98.2; O2SAT 96
[2016-06-06] MEDS: SODIUM CHLORIDE 0.9% FLUSH 10 ML FLUSH IV FLUSH SCH (08:48)
[2016-06-06] MEDS: DOCUSATE SODIUM 100 MG CAP PO SCH (08:49)
[2016-06-06] MEDS: FUROSEMIDE 20 MG/2 ML VIAL IV PUSH SCH (08:49)
[2016-06-06 08:52] VITALS: O2SAT 95
[2016-06-06] MEDS ORDERED: ASPIRIN EC 81 MG TABEC PO SCH (09:00)
[2016-06-06] MEDS ORDERED: guaiFENesin E.R. 600 MG TAB PO SCH (11:15)
[2016-06-06] MEDS ORDERED: FERROUS SULFATE 325 MG (65 MG ELEMENTAL IRON) TAB PO SCH (11:15)
--- NOTE | 2016-06-06 11:24 | HHI.PR ---
Subjective Remarks The patient was looking forward to going home. 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 She had no acute complaints at this time. She was wondering if she could take her home medications. Discussed with nursing. Objective Vitals Vital Signs Date Time Temp Pulse Resp B/P Pulse Ox O2 Delivery O2 Flow Rate FiO2 06/06/16 08:52 95 Nasal Cannula 2.00 06/06/16 08:00 98.2 86 20 112/66 96 06/06/16 08:00 75 06/06/16 08:00 96 Nasal Cannula 2.00 06/06/16 04:13 98.0 80 24 133/75 99 06/06/16 04:00 70 06/06/16 00:00 97.8 86 20 134/74 97 06/06/16 00:00 86 06/05/16 20:27 97 Nasal Cannula 2.00 06/05/16 20:00 96 Nasal Cannula 2.00 06/05/16 20:00 84 06/05/16 20:00 98.0 80 22 103/61 97 06/05/16 18:00 98.2 86 21 98 06/05/16 18:00 92 06/05/16 18:00 87 Nasal Cannula 2.00 06/05/16 17:30 98.2 103 22 94/64 95 06/05/16 17:30 84 24 107/68 87 06/05/16 16:50 88 20 94/64 95 Room Air 06/05/16 16:30 95 21 06/05/16 15:52 Room Air 06/05/16 15:51 91 18 95/67 96 Room Air 06/05/16 15:21 92 19 75/55 95 Room Air 06/05/16 15:02 95 18 85/59 96 Room Air 06/05/16 15:00 98.2 85 18 83/61 96 Room Air 06/05/16 14:50 96 18 84/57 96 Room Air 06/05/16 14:00 86 16 86/57 94 Room Air 06/05/16 13:40 87 19 81/57 95 Room Air 06/05/16 13:35 97 Room Air 06/05/16 13:35 Room Air 06/05/16 13:30 96 19 89/52 95 Room Air 06/05/16 13:25 92 18 90/53 96 06/05/16 13:23 97.9 106 16 82/61 97 I/O 06/05/16 06/05/16 06/05/16 06/06/16 06/06/16 06/06/16 07:00 15:00 23:00 07:00 15:00 23:00 Intake Total 900 ml 120 ml Output Total 1200 ml 1450 ml Balance -300 ml -1330 ml Intake Oral 600 ml 120 ml IV Total 300 ml 0 ml Output Urine Total 1200 ml 1450 ml # Bowel Movements 0 0 Result Diagram: 06/06/16 0549 06/06/16 0549 Imaging Last Impressions Chest X-Ray 06/05/16 1344 Signed Impressions: Service Date/Time: Sunday, June 05, 2016 13:55 - CONCLUSION: No acute disease. There is no evidence of pneumonia. Venkat Sampson MD Objective Remarks GENERAL: Awake and alert, in no acute distress. SKIN: Multiple erythematous lesions on arms and legs, as well as abdominal area. HEAD: Atraumatic. Normocephalic. EYES: Pupils equal and round. No scleral icterus. ENT: Mucous membranes pink and moist. NECK: Trachea midline. No JVD. CARDIOVASCULAR: Regular rate and rhythm. No murmur appreciated. RESPIRATORY: No accessory muscle use. CTAB. GASTROINTESTINAL: Abdomen soft, non-tender, nondistended. MUSCULOSKELETAL: No obvious deformities. No clubbing. No cyanosis. No edema. NEUROLOGICAL: Awake and alert. No obvious cranial nerve deficits. Motor grossly within normal limits. Normal speech. PSYCHIATRIC: Appropriate mood and affect; insight and judgment normal. Medications and IVs Current Medications Medications (Trade) Dose Ordered Sig/Luna Route Start Time Stop Time Status Last Admin (Lasix Inj) 20 mg BID@09,18 IV PUSH 06/05/16 18:00 06/06/16 08:49 (NS Flush) 2 ml UNSCH PRN IV FLUSH 06/05/16 17:30 06/05/16 18:08 (NS Flush) 2 ml BID IV FLUSH 06/05/16 21:00 06/06/16 08:48 (Tylenol) 650 mg Q4H PRN PO 06/05/16 17:30 (Colace) 100 mg Q12H PO 06/05/16 21:00 06/06/16 08:49 (Senokot) 17.2 mg Q12H PRN PO 06/05/16 17:30 (Tylenol) 650 mg Q6H PRN PO 06/05/16 17:30 (Roxicodone) 5 mg Q4H PRN PO 06/05/16 17:30 (Narcan Inj) 0.4 mg UNSCH PRN IV 06/05/16 17:30 (Ecotrin Ec) 81 mg DAILY PO 06/06/16 09:00 06/06/16 08:48 (Mucinex Er) 1,200 mg BID PO 06/06/16 11:15 A/P Assessment and Plan NSTEMI The patient has a history of CHF. She has had symptoms of palpitations but not out right chest pain. She has had congestion and states she was recently treated for bronchitis. She has mild shortness of breath associated with this. EKG with pronounced ST depressions in the lateral leads, which is similar to the previous study. Initial troponin was 0.69. BNP was elevated at 1588. The patient was started on a heparin drip. Appreciate cardiology consult. Heparin drip d/c. LDL 40. - Diuresis with Lasix 20 mg IV twice a day. - Continue cardiac regimen. - Trend troponins and EKGs. - Monitor on telemetry. - 1.5 L fluid restriction. - Dietary consult requested. - follow-up with cardiology. Hyponatremia The patient has chronic hyponatremia. Her diuretics seem to contribute. - Continue with diuresis and fluid restriction. - Monitor BMP. Improved. Probable COPD/ Nicotine dependence The patient still smokes 1.5 packs daily. - Cessation instruction. - PFTs as an outpatient. - Oxygen as needed. Hypotension Appears chronic. Relatively asymptomatic. - monitor while being diuresed. Improved. - follow up with cardiology. Anemia Hemoglobin seems lower than baseline. Labs consistent with iron deficiency anemia. B12 level also low. - Check Hemoccult. - start iron and B12 replacement. Diabetes On metformin as an outpt. Glucose well controlled. - hold metformin. - insulin sliding scale. PPx: Lovenox. Discharge Planning D/c when cleared by cards. Anticipate in AM. Venkat Rios DO Jun 06, 2016 11:24
[2016-06-06] MEDS ORDERED: CYANOCOBALAMIN 1000 MCG/ML VIAL IM ONE (11:30)
[2016-06-06] MEDS ORDERED: ASPI81TA11 PO (14:10)
[2016-06-06] MEDS ORDERED: FERR325T PO (14:10)
[2016-06-06] MEDS ORDERED: MUCI600T PO (14:10)
--- NOTE | 2016-06-06 14:10 | HHI.DCPOC ---
Discharge Care Plan Diagnosis: (1) NSTEMI (non-ST elevated myocardial infarction) (2) Hyponatremia (3) Bronchitis Goals to Promote Your Health * To prevent worsening of your condition and complications * To maintain your health at the optimal level Directions to Meet Your Goals Take your medications as prescribed Follow your dietary instruction Follow activity as directed Keep your appointments as scheduled Take your immunizations and boosters as scheduled If your symptoms worsen call your PCP, if no PCP go to Urgent Care Center or Emergency Room Smoking is Dangerous to Your Health. Avoid second hand smoke Call the 24-hour hour crisis hotline for domestic abuse at Venkat Rios DO Jun 06, 2016 14:10
--- NOTE | 2016-06-06 19:06 | EKG ---
Date Performed: 06/06/2016 Time Performed: 02:22:30 PTAGE: 70 years EKG: Sinus rhythm with PAC(s) Right axis deviation Right ventricular hypertrophy Extensive ST-T changes Abnormal ECG PREVIOUS TRACING : 06/05/2016 20.03 Compared to prior tracing no significant change DOCTOR: Sy Cortés Interpretating Date/Time 06/06/2016 19:05:37
--- NOTE | 2016-06-06 19:17 | EKG ---
Date Performed: 06/05/2016 Time Performed: 20:03:02 PTAGE: 70 years EKG: Sinus rhythm . Possible left atrial abnormality Right axis deviation Right ventricular hypertrophy Extensive ST-T changes are probably due to ventricular hypertrophy Abnormal ECG PREVIOUS TRACING : 06/05/2016 14.03 Compared to prior tracing no significant change DOCTOR: Sy Cortés Interpretating Date/Time 06/06/2016 19:15:51
--- NOTE | 2016-06-06 19:28 | EKG ---
Date Performed: 06/05/2016 Time Performed: 14:03:20 PTAGE: 70 years EKG: Sinus arrhythmia Possible left atrial abnormality Right axis deviation R ventricular hypert rophy Extensive ST-T changes Abnormal ECG PREVIOUS TRACING : 04/23/2016 11.35 Compared to prior tracing no significant change DOCTOR: Sy Cortés Interpretating Date/Time 06/06/2016 19:27:07
[2016-06-06] MEDS ORDERED: ATORVASTATIN 10 MG TAB PO SCH (21:00)
[2016-06-07 10:59] LABS: HEMOGLOBIN A1a 1.6 %; HEMOGLOBIN A1b 2.5 %; HEMOGLOBIN Ao 80.5 %; HEMOGLOBIN LA1C 2.3 %; HEMOGLOBIN P3 6.6 %
== END 2016-06-06 16:50 | disposition home or self-care (01) | DRG 281 ==
LOC: PHED 13:11 → PHEDA 16:03 → PHICU 17:20
PROVIDERS: ADMIT Hospitalist; ATTEND Hospitalist
DX: I21.4 Non-ST elevation (NSTEMI) myocardial infarction (principal); E87.1 Hypo-osmolality and hyponatremia; I95.9 Hypotension, unspecified; I27.2 Other secondary pulmonary hypertension; I27.81 Cor pulmonale (chronic); I50.9 Heart failure, unspecified; I10 Essential (primary) hypertension; E11.9 Type 2 diabetes mellitus without complications; D50.9 Iron deficiency anemia, unspecified; R00.2 Palpitations; R42 Dizziness and giddiness; F17.210 Nicotine dependence, cigarettes, uncomplicated; E78.00 Pure hypercholesterolemia, unspecified; J44.9 Chronic obstructive pulmonary disease, unspecified; I25.10 Atherosclerotic heart disease of native coronary artery without angina pectoris; E78.5 Hyperlipidemia, unspecified; L43.9 Lichen planus, unspecified; L40.9 Psoriasis, unspecified; J40 Bronchitis, not specified as acute or chronic; Z79.84 Long term (current) use of oral hypoglycemic drugs; Z85.3 Personal history of malignant neoplasm of breast
CPT/HCPCS: 71020; 80053; 80061; 81001; 82607; 82728; 82746; 82948; 83036; 83540; 83550; 83735; 83880; 84100; 84484; 85025; 85610; 85730; 93005; 96374; J1644; J1815; J1940; J3420; J7050